=== PATIENT | female | born 1985 | race Caucasian/White ===

== ENCOUNTER 2020-09-06 05:36 | Emergency (ER) | payer MEDICAID ==
[~2020-09-06] VITALS: Ht 160 cm; Wt 67.0 kg
[2020-09-06 05:38] VITALS: BP 123/92
== END 2020-09-06 12:15 | disposition home or self-care (01) ==
LOC: ER 05:36
DX: M54.2 Cervicalgia (principal); G50.1 Atypical facial pain; G89.11 Acute pain due to trauma; Y07.03 Male partner, perpetrator of maltreatment and neglect; R03.0 Elevated blood-pressure reading, without diagnosis of hypertension; Y04.2XXA Assault by strike against or bumped into by another person, initial encounter; Y93.89 Activity, other specified; Y92.89 Other specified places as the place of occurrence of the external cause
CPT/HCPCS: 70486; 72141; 99285

== ENCOUNTER 2021-05-23 14:39 | Emergency (ER) | payer SELFPAY ==
[~2021-05-23] VITALS: Ht 160 cm; Wt 66.0 kg
[2021-05-23 14:42] VITALS: BP 160/108
== END 2021-05-23 20:32 | disposition left against medical advice (07) ==
LOC: ER 14:39
DX: Z53.21 Procedure and treatment not carried out due to patient leaving prior to being seen by health care provider (principal); R20.2 Paresthesia of skin; R20.0 Anesthesia of skin; F15.10 Other stimulant abuse, uncomplicated
CPT/HCPCS: 93005

== ENCOUNTER 2024-01-24 05:56 | Emergency (ER) | payer OTHER ==
[~2024-01-24] VITALS: Ht 160 cm; Wt 68.0 kg
[2024-01-24 06:09] VITALS: TEMP 98.4; O2SAT 100
[2024-01-24] MEDS ORDERED: SULF1TAB48 MT (09:52)
[2024-01-24 10:06] VITALS: BP 130/80; PULSE 82; RESP 16
== END 2024-01-24 10:06 | disposition home or self-care (01) ==
LOC: ER 05:56
DX: R21 Rash and other nonspecific skin eruption (principal)
CPT/HCPCS: 99283

== ENCOUNTER 2024-06-03 00:55 | Emergency (ER) | payer MEDICAID ==
[~2024-06-03] VITALS: Ht 160 cm; Wt 74.7 kg
[~2024-06-03 00:55] MED LIST: SULF1TAB48 MT
[2024-06-03 01:10] VITALS: O2SAT 100
[2024-06-03 01:15] VITALS: TEMP 98.9; O2SAT 100
[2024-06-03] MEDS ORDERED: TETANUS, DIPHTHERIA, PERTUSSIS VAC/PF 0.5ML (>10YR OLD) IM ONE (01:45)
[2024-06-03] MEDS ORDERED: AMOX1TAB16 MT (02:52)
[2024-06-03] MEDS ORDERED: BO1 TP (02:52)
[2024-06-03] MEDS ORDERED: IBUP-2029 MT (02:52)
[2024-06-03 03:47] VITALS: BP 152/81; PULSE 103; RESP 19
[2024-06-03] MEDS: IBUPROFEN 600MG TABLET PO ONE (03:47)
[2024-06-03] MEDS: BACITRACIN ZINC OINT UDPKT TOP NR (03:47)
[2024-06-03] MEDS: IBUPROFEN 600MG TABLET PO NR (03:47)
[2024-06-03] MEDS: BACITRACIN ZINC OINT UDPKT TOP ONE (03:47)
[2024-06-03] MEDS: TETANUS, DIPHTHERIA, PERTUSSIS VAC/PF 0.5ML (>10YR OLD) IM ONE (03:48)
== END 2024-06-03 03:55 | disposition home or self-care (01) ==
LOC: ER 00:55
DX: S60.511A Abrasion of right hand, initial encounter (principal); W54.0XXA Bitten by dog, initial encounter; Y93.89 Activity, other specified; Y92.89 Other specified places as the place of occurrence of the external cause; Y99.8 Other external cause status
CPT/HCPCS: 81025; 73130; 90715; 90471; 99283; Z7610

== ENCOUNTER 2024-12-14 22:41 | Emergency (ER) | payer MEDICAID ==
[~2024-12-14] VITALS: Ht 157.5 cm; Wt 67.2 kg
[~2024-12-14 22:41] MED LIST changes: +AMOX1TAB16 MT; +BO1 TP; +IBUP-2029 MT
[2024-12-14 23:29] VITALS: BP 136/81; RESP 18; TEMP 36.7; O2SAT 100
[2024-12-14 23:31] VITALS: PULSE 110; O2SAT 100
[2024-12-15 01:00] LABS: BASOPHILS % 0.8 % (0.0-2.0); EOSINOPHILS % 2.3 % (0.0-5.0); HEMATOCRIT. 36.3 % (36.0-48.0); HEMOGLOBIN. 12.4 g/dL (12.0-16.0); LYMPHOCYTES % 28.5 % (20.0-50.0); MEAN CORPUSCULAR HEMOGLOBIN 30.9 pg (28.0-32.0); MEAN CORPUSCULAR VOLUME 90.9 fL (81.0-99.0); MEAN PLATELET VOLUME 7.2 fl (7.4-10.4); MONOCYTES % 7.1 % (2.0-8.0); NEUTROPHILS % 61.3 % (40.0-76.0); PLATELET 296 x1000/uL (130-400); RED CELL DISTRIBUTION WIDTH 13.9 % (11.6-14.6); WHITE BLOOD COUNT 4.9 x1000/uL (4.5-11.0)
[2024-12-15 01:12] LABS: CHLORIDE 106 mEq/L (98-107); POTASSIUM 3.9 mEq/L (3.5-5.1); SODIUM 141 mEq/L (136-145)
[2024-12-15 01:14] LABS: CALCIUM 9.2 mg/dL (8.7-10.4); CARBON DIOXIDE 28 mEq/L (21-32)
[2024-12-15 01:35] LABS: CREATININE 0.8 mg/dL (0.6-1.0); GLUCOSE 96 mg/dL (70-105); UREA NITROGEN BLOOD 12 mg/dL (9-23)
[2024-12-15 01:40] LABS: ALANINE AMINOTRANSFERASE 10 IU/L (10-49); ALBUMIN 4.6 g/dL (3.2-4.8); ASPARTATE AMINOTRANSFERASE 18 IU/L (<34); BILIRUBIN DIRECT < 0.1 mg/dL (<=3.0); BILIRUBIN TOTAL 0.3 mg/dL (0.1-1.0); PROTEIN TOTAL 7.2 g/dL (6.0-8.3)
[2024-12-15 01:58] LABS: HCG SCREEN NEGATIVE
[2024-12-15] MEDS ORDERED: NAPR-1176 MT (02:59)
[2024-12-15] MEDS: ONDANSETRON HCL 4MG TABLET PO ONE (03:05)
[2024-12-15] MEDS: ACETAMINOPHEN 500MG TABLET PO ONE (03:05)
[2024-12-15] MEDS ORDERED: HYDR453.3 TP (04:02)
== END 2024-12-15 04:09 | disposition home or self-care (01) ==
LOC: ER 22:41
DX: L70.9 Acne, unspecified (principal); K80.20 Calculus of gallbladder without cholecystitis without obstruction; F12.90 Cannabis use, unspecified, uncomplicated; Z79.1 Long term (current) use of non-steroidal anti-inflammatories (NSAID)
CPT/HCPCS: 99284; 36415 ×2; 76705; 80076; 80048; 84703; 83690; 85025; Q0162

== ENCOUNTER 2025-03-07 20:08 | Emergency (ER) | payer MEDICAID ==
[~2025-03-07] VITALS: Ht 157.5 cm; Wt 69.0 kg
[~2025-03-07 20:08] MED LIST changes: +HYDR453.3 TP; +NAPR-1176 MT
[2025-03-07 20:12] VITALS: O2SAT 100
[2025-03-07 21:19] VITALS: BP 148/85; PULSE 73; RESP 16; TEMP 37.1; O2SAT 100
[2025-03-07] MEDS ORDERED: LIDOCAINE HCL 1% 20ML VIAL INFIL ONE (21:30)
[2025-03-07] MEDS ORDERED: ACETAMINOPHEN 325MG TABLET PO ONE (22:45)
[2025-03-07] MEDS ORDERED: NAPR-681 MT (23:38)
[2025-03-08] MEDS ORDERED: ACETAMINOPHEN 325MG TABLET PO NR (02:30)
[2025-03-08] MEDS ORDERED: LIDOCAINE HCL 1% 20ML VIAL INFIL NR (02:30)
== END 2025-03-08 05:00 | disposition home or self-care (01) ==
LOC: ER 20:08
DX: S61.212A Laceration without foreign body of right middle finger without damage to nail, initial encounter (principal); S61.213A Laceration without foreign body of left middle finger without damage to nail, initial encounter; F12.90 Cannabis use, unspecified, uncomplicated; F15.90 Other stimulant use, unspecified, uncomplicated; W26.0XXA Contact with knife, initial encounter; Y93.89 Activity, other specified; Y92.89 Other specified places as the place of occurrence of the external cause; Y99.8 Other external cause status
CPT/HCPCS: 12001; 73140; 99283

== ENCOUNTER 2025-04-16 02:49 | Emergency (ER) | payer MEDICAID ==
[~2025-04-16] VITALS: Ht 157.5 cm; Wt 68.0 kg
[~2025-04-16 02:49] MED LIST changes: +IBUP-1455 MT; -IBUP-2029 MT; +NAPR-681 MT
[2025-04-16 02:51] VITALS: O2SAT 100
[2025-04-16 02:55] VITALS: TEMP 37; O2SAT 100
[2025-04-16 03:51] LABS: BASOPHILS % 0.7 % (0.0-2.0); EOSINOPHILS % 4.1 % (0.0-5.0); HEMATOCRIT. 33.3 % (36.0-48.0); HEMOGLOBIN. 11.2 g/dL (12.0-16.0); LYMPHOCYTES % 29.3 % (20.0-50.0); MEAN PLATELET VOLUME 7.0 fl (7.4-10.4); MONOCYTES % 9.8 % (2.0-8.0); NEUTROPHILS % 56.1 % (40.0-76.0); PLATELET 260 x1000/uL (130-400); RED BLOOD CELL COUNT 3.61 mill/uL (4.2-5.4); RED CELL DISTRIBUTION WIDTH 12.8 % (11.6-14.6)
[2025-04-16 04:03] LABS: B-HCG QUANTITATIVE 3 mIU/mL (<6); CREATININE 0.7 mg/dL (0.6-1.0)
[2025-04-16 04:04] LABS: UREA NITROGEN BLOOD 11 mg/dL (9-23)
[2025-04-16 04:11] LABS: CLARITY URINE TURBID (CLEAR); COLOR URINE YELLOW (YELLOW); GLUCOSE URINE NEGATIVE (NEGATIVE); KETONES URINE NEGATIVE (NEGATIVE); LEUKOCYTE ESTERASE URINE 2+ (NEGATIVE); NITRITE URINE NEGATIVE (NEGATIVE); OCCULT BLOOD URINE NEGATIVE (NEGATIVE); PH URINE >=9.0 (4.5-8.0); PROTEIN URINE 1+ (NEGATIVE); SPECIFIC GRAVITY URINE 1.024 (1.005-1.030); UROBILINOGEN URINE 0.2 E.U./dL (0.2-1.0)
[2025-04-16 04:24] LABS: RBC URINE NONE SEEN /hpf (0-2); SQUAMOUS EPITHELIAL CELL URINE FEW /lpf (RARE/1+)
[2025-04-16 04:26] LABS: AMORPHOUS SEDIMENT URINE 2+ /lpf; BACTERIA URINE 1+
[2025-04-16 04:28] LABS: TRIPLE PHOSPHATE CRYSTAL URINE 1+ /lpf
[2025-04-16 04:44] VITALS: BP 126/85; PULSE 87; RESP 18
[2025-04-16] MEDS: HYDROCODONE/ACETAMINOPHEN 5/325MG TABLET PO NR (04:44)
[2025-04-16] MEDS ORDERED: IBUP-1455 MT (05:41)
== END 2025-04-16 05:52 | disposition home or self-care (01) ==
LOC: ER 02:49
DX: N93.9 Abnormal uterine and vaginal bleeding, unspecified (principal); R10.9 Unspecified abdominal pain; F12.90 Cannabis use, unspecified, uncomplicated; F15.90 Other stimulant use, unspecified, uncomplicated; R10.2 Pelvic and perineal pain
CPT/HCPCS: 36415; 76830; 76856; 80048; 81003; 84702; 85025; 99284

== ENCOUNTER 2025-05-03 12:45 | Emergency (ER) | payer MEDICAID ==
[~2025-05-03] VITALS: Ht 160 cm; Wt 67.0 kg
[2025-05-03 12:49] VITALS: O2SAT 100
[2025-05-03 12:51] VITALS: BP 130/84; PULSE 81; RESP 14; TEMP 36.9; O2SAT 100
[2025-05-03] MEDS ORDERED: DOXY100T28 MT (15:19)
[2025-05-03] MEDS ORDERED: HYDR453.3 TP (15:19)
[2025-05-03] MEDS ORDERED: DIPH25TA62 PO (15:19)
== END 2025-05-03 15:50 | disposition home or self-care (01) ==
LOC: ER 13:28
DX: L25.9 Unspecified contact dermatitis, unspecified cause (principal); L03.211 Cellulitis of face; F12.90 Cannabis use, unspecified, uncomplicated; F15.90 Other stimulant use, unspecified, uncomplicated
CPT/HCPCS: 99283

== ENCOUNTER 2025-07-05 01:05 | Inpatient (IN) | payer MEDICAID, OTHER ==
[~2025-07-05] VITALS: Ht 153 cm; Wt 69.4 kg
[~2025-07-05 01:05] MED LIST changes: +DIPH25TA62 PO; +DOXY100T28 MT
[2025-07-05 01:10] VITALS: O2SAT 99
[2025-07-05 02:07] LABS: BASOPHILS % 0.8 % (0.0-2.0); EOSINOPHILS % 2.3 % (0.0-5.0); HEMATOCRIT. 37.4 % (36.0-48.0); HEMOGLOBIN. 12.6 g/dL (12.0-16.0); LYMPHOCYTES % 22.6 % (20.0-50.0); MEAN PLATELET VOLUME 7.2 fl (7.4-10.4); MONOCYTES % 7.5 % (2.0-8.0); NEUTROPHILS % 66.8 % (40.0-76.0); PLATELET 296 x1000/uL (130-400); RED BLOOD CELL COUNT 4.04 mill/uL (4.2-5.4); RED CELL DISTRIBUTION WIDTH 12.9 % (11.6-14.6)
[2025-07-05 02:13] LABS: CREATININE 0.7 mg/dL (0.6-1.0); UREA NITROGEN BLOOD 14 mg/dL (9-23)
[2025-07-05 02:14] LABS: ASPARTATE AMINOTRANSFERASE 21 IU/L (<34); TROPONIN I HIGH SENSITIVITY < 4 ng/L (3.0-34)
[2025-07-05 02:15] LABS: BILIRUBIN DIRECT < 0.1 mg/dL (<=3.0); BILIRUBIN TOTAL 0.3 mg/dL (0.1-1.0); PROTEIN TOTAL 7.1 g/dL (6.0-8.3)
[2025-07-05] MEDS: ONDANSETRON HCL 4MG/2ML INJ IV ONE (03:44)
[2025-07-05] MEDS: SODIUM CHLORIDE 0.9% 1,000 ML IV ONE (03:44)
[2025-07-05] MEDS: MORPHINE SULFATE 4 MG/ML INJ (FOR IV/IM USE) IV ONE (03:45)
[2025-07-05 04:58] LABS: HCG SCREEN NEGATIVE
[2025-07-05 08:27] LABS: CLARITY URINE CLEAR (CLEAR); COLOR URINE YELLOW (YELLOW); GLUCOSE URINE NEGATIVE (NEGATIVE); KETONES URINE NEGATIVE (NEGATIVE); LEUKOCYTE ESTERASE URINE NEGATIVE (NEGATIVE); NITRITE URINE NEGATIVE (NEGATIVE); OCCULT BLOOD URINE TRACE (NEGATIVE); PH URINE 6.5 (4.5-8.0); PROTEIN URINE NEGATIVE (NEGATIVE); SPECIFIC GRAVITY URINE 1.021 (1.005-1.030); UROBILINOGEN URINE 0.2 E.U./dL (0.2-1.0)
[2025-07-05] MEDS ORDERED: LORAZEPAM 0.5MG TABLET PO PRN (08:45)
[2025-07-05] MEDS ORDERED: ONDANSETRON HCL 4MG/2ML INJ IV PRN (08:45)
[2025-07-05] MEDS ORDERED: ACETAMINOPHEN 325MG TABLET PO PRN (08:45)
[2025-07-05] MEDS ORDERED: IPRATROPIUM/ALBUTEROL 0.5-3(2.5)MG/3ML NEB HHN PRN (08:45)
[2025-07-05] MEDS ORDERED: DOCUSATE SODIUM 100MG CAPSULE PO PRN (08:45)
[2025-07-05] MEDS ORDERED: CLONIDINE 0.1MG TABLET PO PRN (08:45)
[2025-07-05 08:53] LABS: BACTERIA URINE 3+; RBC URINE 0-2 /hpf (0-2); SQUAMOUS EPITHELIAL CELL URINE 3+ /lpf (RARE/1+); YEAST URINE NONE SEEN
[2025-07-05] MEDS: ACETAMINOPHEN 325MG TABLET PO PRN (09:17)
[2025-07-05] MEDS: KETOROLAC 30MG/ML VIAL IV PRN (09:18)
[2025-07-05] MEDS: DEXT 5%/0.9% NACL 1,000 ML IV SCH (09:33)
[2025-07-05] MEDS: URSODIOL 300MG CAPSULE PO NR (09:33)
[2025-07-05 10:19] LABS: TRIGLYCERIDE 57.0 mg/dL (0-150)
[2025-07-05 10:20] LABS: LDL CHOLESTEROL 85.0 mg/dL (5-100)
[2025-07-05 10:24] LABS: T4 FREE 1.55 ng/dL (0.89-1.76)
[2025-07-05 15:30] VITALS: BP 113/72; PULSE 73; RESP 18; TEMP 36.418
[2025-07-05 19:35] LABS: *AMPHETAMINES SCREEN URINE PRESUMPTIVE POSITIVE (NEGATIVE); *BARBITURATES SCREEN URINE NEGATIVE (NEGATIVE); *BENZODIAZEPINES SCREEN URINE NEGATIVE (NEGATIVE); *COCAINE SCREEN URINE NEGATIVE (NEGATIVE); CANNABINOID URINE SCREEN NEGATIVE (NEGATIVE); ECSTASY MDMA SCREEN URINE NEGATIVE (NEGATIVE); METHADONE URINE SCREEN NEGATIVE (NEGATIVE); OPIATES URINE SCREEN PRESUMPTIVE POSITIVE (NEGATIVE); PHENCYCLIDINE URINE SCREEN NEGATIVE (NEGATIVE)
[2025-07-05 20:00] VITALS: BP 122/68; PULSE 66; RESP 18; TEMP 36.7; O2SAT 98
[2025-07-06 04:00] VITALS: BP 118/71; PULSE 68; RESP 18; TEMP 36.7; O2SAT 99
[2025-07-06 08:00] VITALS: BP 99/63; PULSE 84; RESP 20; TEMP 36.1; O2SAT 97
[2025-07-06] MEDS: URSODIOL 300MG CAPSULE PO SCH (09:36)
[2025-07-06] MEDS: PANTOPRAZOLE SODIUM 40 MG/VIAL IV SCH (09:36)
[2025-07-06 11:52] LABS: BASOPHILS % 0.9 % (0.0-2.0); EOSINOPHILS % 5.0 % (0.0-5.0); HEMATOCRIT. 35.0 % (36.0-48.0); HEMOGLOBIN. 11.6 g/dL (12.0-16.0); LYMPHOCYTES % 30.9 % (20.0-50.0); MEAN PLATELET VOLUME 7.2 fl (7.4-10.4); MONOCYTES % 9.1 % (2.0-8.0); NEUTROPHILS % 54.1 % (40.0-76.0); PLATELET 274 x1000/uL (130-400); RED BLOOD CELL COUNT 3.77 mill/uL (4.2-5.4); RED CELL DISTRIBUTION WIDTH 12.6 % (11.6-14.6)
[2025-07-06 12:00] VITALS: BP 91/54; PULSE 79; RESP 20; TEMP 36.4; O2SAT 98
[2025-07-06 12:18] LABS: CREATININE 0.6 mg/dL (0.6-1.0); UREA NITROGEN BLOOD 9 mg/dL (9-23)
[2025-07-06 16:00] VITALS: BP 89/46; PULSE 74; RESP 20; TEMP 36.6; O2SAT 99
[2025-07-06] MEDS: SODIUM CHLORIDE 0.9% 500 ML IV ONE (17:54)
[2025-07-06 20:00] VITALS: BP 92/49; PULSE 77; RESP 20; TEMP 36.6; O2SAT 99
[2025-07-06 21:00] VITALS: BP 103/59
[2025-07-07 04:00] VITALS: BP 115/69; PULSE 77; RESP 18; TEMP 36.6; O2SAT 98
[2025-07-07 08:00] VITALS: BP 105/64; PULSE 66; RESP 18; TEMP 36.1; O2SAT 98
[2025-07-07] MEDS: GUAIFENESIN 200MG/10ML SUGAR FREE UDC PO PRN (08:40)
[2025-07-07 10:15] VITALS: BP 18/105; PULSE 66; RESP 64; TEMP 97
== END 2025-07-07 11:09 | disposition home or self-care (01) ==
LOC: ER 01:05 → 6EST 03:57 → EDBEDREQ 04:11 → EDBEDREQSVC 04:11 → EDBEDREQTM 04:11 → ENRESERV 14:21
PROVIDERS: ADMIT Internal Medicine; ATTEND Internal Medicine
DX: K80.20 Calculus of gallbladder without cholecystitis without obstruction (principal); Z59.00 Homelessness unspecified; F15.10 Other stimulant abuse, uncomplicated; F17.210 Nicotine dependence, cigarettes, uncomplicated
CPT/HCPCS: 36415; 73120; 76705; 80048; 80061; 80076; 80305; 81003; 83735; 83880; 84439; 84443; 84484; 84703; 85025; 96374; 96375; 99285; J1885; J2270; J2405; J2470; J7030